=== PATIENT | male | born 1975 | race Caucasian/White ===

== ENCOUNTER → 2018-08-31 15:04 | Outpatient (CLI) | payer BC, SELFPAY ==
[2018-08-31 17:39] LABS: Absolute Neutrophil Count 3.7 X10^3/uL (2.0-7.7); Basophil# 0.03 X10^3/uL; Basophil% 0.5 % (0-1); Eosinophil# 0.12 X10^3/uL; Eosinophils% 2.1 % (0-5); Hematocrit 44.1 % (40-54); Hemoglobin 15.9 g/dl (13.0-16.5); Lymphocyte % 21.1 % (19-41); Mean Corp Hgb Conc 36.1 g/gl (32-36); Mean Corpuscular Hgb 31.5 pg (27.0-32.0); Mean Corpuscular Volume 87.3 fL (80-94); Mean Platelet Vol. 10.7 fl (6.2-12.0); Monocyte# 0.51 X10^3/uL; Monocyte% 8.9 % (0-10); Neutrophil # 3.71 X10^3/uL (2.7-7.7); Neutrophil % 65.1 % (47-70); POSITIVE COUNT YES; POSITIVE DIFFERENTIAL NO; POSITIVE MORPHOLOGY YES; Platelet Count 180 K/mm3 (150-450); RBC Distribution Width CV 13.4 % (11.6-14.6); RBC Distribution Width SD 41.7 fl (35.1-43.9); Red Blood Count 5.05 M/mm3 (4.6-6.2); White Blood Count 5.7 K/mm3 (4.4-11.0)
[2018-08-31 17:54] LABS: ALB/GLOB Ratio 1.1 RATIO (0.9-2.4); AST(SGOT) 22 U/L (15-37); Alanine Aminotransfer ALT/SGPT 44 U/L (16-61); Albumin, Serum 3.9 g/dL (3.2-5.0); Alkaline Phosphatase 70 U/L (45-117); Anion Gap 8 (5-15); BUN 12 mg/dL (7-18); BUN/Creat Ratio 10.2 RATIO (10-20); Calcium,Total 8.6 mg/dL (8.5-10.1); Chloride 106 mmol/L (98-107); Creatinine, Serum 1.18 mg/dL (0.70-1.30); EST Glomerular Filtration Rate 71 mL/min (>60); Est Glom Filt Rate - Afr Amer 86 mL/min (>60); Globulin 3.4 g/dL (2.2-4.2); Glucose 91 mg/dL (74-106); Potassium 3.9 mmol/L (3.5-5.1); Protein, Total 7.3 g/dL (6.4-8.2); Sodium Level 141 mmol/L (136-145)
[2018-09-02 09:49] LABS: Pathologist Review Reviewed
[2018-09-02 16:08] LABS: Endomysial Antibody IgA Negative (Negative)
[2018-09-02 17:00] LABS: Deamidated Gliadin IgA 4 units (0-19); Deamidated Gliadin IgG 2 units (0-19); Immunoglobulin A 187 mg/dL (90-386); t-Transglutaminase IgA <2 U/mL (0-3)
[2018-09-02 17:01] LABS: Giardia Lamblia, Stool EIA Negative (Negative)
== END ==
PROVIDERS: Visit Provider Family Medicine
DX: R19.7 Diarrhea, unspecified (principal)
CPT/HCPCS: 36415; 80053; 82784; 83516; 85025; 86255; 87177; 87209; 87329; 87493; 87506

== ENCOUNTER → 2019-11-22 09:51 | Outpatient (CLI) | payer BC, SELFPAY ==
[2019-11-22 12:34] LABS: Cholesterol 210 mg/dL (200); High Density Lipoprotein 66 mg/dL; Triglycerides 127 mg/dL; Very Low Density Lipoprotein 25 mg/dL (5-40)
== END ==
PROVIDERS: PCP Family Medicine; Referring Provider Family Medicine; Visit Provider Family Medicine
DX: Z83.3 Family history of diabetes mellitus (principal)
CPT/HCPCS: 36415; 80061; 83036

== ENCOUNTER → 2020-12-04 08:13 | Outpatient (CLI) | payer BC, SELFPAY ==
[2020-12-04 09:55] LABS: Absolute Lymphocyte Count 1.35 X10^3/uL (0.83-4.51); Absolute Neutrophil Count 4.6 X10^3/uL (2.0-7.7); Basophil# 0.06 X10^3/uL; Basophil% 0.9 % (0-1); Eosinophil# 0.19 X10^3/uL; Eosinophils% 2.7 % (0-5); Hemoglobin 14.5 g/dL (13.0-16.5); Lymphocyte # 1.35 X10^3/ul (0.83-4.51); Lymphocyte % 19.5 % (19-41); Mean Corp Hgb Conc 33.7 g/dL (32-36); Mean Corpuscular Hgb 28.7 pg (27.0-32.0); Mean Platelet Vol. 10.3 fl (6.2-12.0); Monocyte# 0.66 X10^3/uL; Monocyte% 9.5 % (0-10); NRBC Flagged by Analyzer 0 % (0-5); Neutrophil # 4.58 X10^3/uL (2.7-7.7); Neutrophil % 66.1 % (47-70); Platelet Count 257 K/mm3 (150-450); RBC Distribution Width CV 13.6 % (11.6-14.6); Red Blood Count 5.06 M/mm3 (4.6-6.2); White Blood Count 6.9 K/mm3 (4.4-11.0)
[2020-12-04 10:15] LABS: Cholesterol 221 mg/dL (200); Ferritin 8 ng/mL (26-388); High Density Lipoprotein 72 mg/dL; Triglycerides 122 mg/dL; Very Low Density Lipoprotein 24 mg/dL (5-40)
[2020-12-04 10:16] LABS: Microalbumin,Random Urine 12.1 mg/L (NO RANGE EST.); Microalbumin:Creatinine Ratio 4.8 mg/g CRE (<30 mg/g CRE)
== END ==
PROVIDERS: PCP Family Medicine; Visit Provider Family Medicine
DX: Z00.00 Encounter for general adult medical examination without abnormal findings (principal); K52.832 Lymphocytic colitis; R03.0 Elevated blood-pressure reading, without diagnosis of hypertension; G47.33 Obstructive sleep apnea (adult) (pediatric)
CPT/HCPCS: 36415; 80061; 82043; 82570; 82728; 84443; 85025